=== PATIENT | female | born 1985 | race Caucasian/White ===

== ENCOUNTER 2018-05-26 08:57 | Emergency (ER) | payer OTHER ==
[2018-05-26 09:06] VITALS: BP 141/85; PULSE 93; TEMP 98.3; BMI 30.7
--- NOTE | 2018-05-26 09:17 | PDOC ---
History of Present Illness - General Chief Complaint: Pain, Acute Stated Complaint: PAIN Time Seen by Provider: 05/26/18 09:16 History Source: Patient - History of Present Illness Timing/Duration: other Associated Symptoms: denies: fever/chills, nausea/vomiting Past History - Past Medical History Allergies/Adverse Reactions: Allergies Allergy/AdvReac Type Severity Reaction Status Date / Time oxycodone HCl Allergy Verified 03/02/14 19:26 [From OxyContin] Home Medications: Ambulatory Orders Hydrocodone/Ibuprofen [VICOPROFEN 7.5/200 mg [NF MEDICATION]] 1 tab PO Q6H #20 tablet MDD 4 doses 05/26/18 COPD: No GI Disorders: Yes (PANCREATITIS) Other medical history: ovarian cyst - Surgical History Cholecystectomy: Yes Lung Surgery: No - Immunization History Immunization Up to Date: Yes - Suicide/Smoking/Psychosocial Hx Smoking History: Never smoked Have you smoked in the past 12 months: No Information on smoking cessation initiated: No Hx Alcohol Use: No Drug/Substance Use Hx: No Review of Systems - Review of Systems Constitutional: No: Chills, Fever ABD/GI: Yes: Abdominal cramping. No: Nausea, Vomiting : No: Burning, Dysuria, Flank Pain, Hematuria *Physical Exam - Vital Signs Last Vital Signs Temp Pulse Resp BP Pulse Ox 98.3 F 93 H 18 141/85 100 05/26/18 09:02 05/26/18 09:02 05/26/18 09:02 05/26/18 09:02 05/26/18 09:02 - Physical Exam General Appearance: Yes: Appropriately Dressed. No: Apparent Distress HEENT: positive: Normal Voice Neck: positive: Supple Respiratory/Chest: negative: Respiratory Distress Gastrointestinal/Abdominal: positive: Tender (R suprapubic area), Soft Musculoskeletal: negative: CVA Tenderness Integumentary: positive: Dry, Warm Neurologic: positive: Fully Oriented, Alert, Normal Mood/Affect Moderate Sedation - Procedure Monitoring Vital Signs: Procedure Monitoring Vital Signs Temperature 98.3 F 05/26/18 09:02 Pulse Rate 93 H 05/26/18 09:02 Respiratory Rate 18 05/26/18 09:02 Blood Pressure 141/85 05/26/18 09:02 O2 Sat by Pulse Oximetry (%) 100 05/26/18 09:02 Medical Decision Making - Medical Decision Making 05/26/18 09:17 32-year-old F, dx with R ovarian cyst 2 weeks ago after presenting with abdominal pain to [facility]. States she was told she had a large cyst on ultrasound. States lab and UA was negative. Has since made an appointment heard with her SHADE MATCHER to be seen on Friday. Here today because right pelvic pain has worsened. No n/v/f/cm dysuria or vag discharge See exam R/o torsion -pain control -US 05/26/18 09:42 05/26/18 11:19 US read as multiple cysts to R ovary, largest ~2 x 2cm w/ no e/o torsion. Pt given copy of report to f/u with her SHADE MATCHER as scheduled in 3 days *DC/Admit/Observation/Transfer Diagnosis at time of Disposition: Ovarian cyst Qualifiers: Laterality: right Qualified Code(s): N83.201 - Unspecified ovarian cyst, right side - Discharge Dispostion Disposition: HOME Condition at time of disposition: Good - Prescriptions Prescriptions: Hydrocodone/Ibuprofen [VICOPROFEN 7.5/200 mg [NF MEDICATION]] 1 tab PO Q6H #20 tablet MDD 4 doses - Referrals Referrals: Isaiah Key [Primary Care Provider] - - Patient Instructions Printed Discharge Instructions: DI for Ovarian Cyst Additional Instructions: Your ultrasound demonstrates multiple right ovarian cysts, largest is 2 x 2 cm. There was no evidence of torsion. Take pain medication as directed and follow- up with your SHADE MATCHER as scheduled Friday For any worsening of symptoms such as nausea, vomiting or fever - Post Discharge Activity Forms/Work/School Notes: Back to Work
[2018-05-26] MEDS ORDERED: KETOROLAC TROMETHAMINE 60 MG/2 ML VIAL IM ONE (09:20)
--- NOTE | 2018-05-26 09:54 | PDOC ---
*Physical Exam - Vital Signs Last Vital Signs Temp Pulse Resp BP Pulse Ox 98.3 F 93 H 18 141/85 100 05/26/18 09:02 05/26/18 09:02 05/26/18 09:02 05/26/18 09:02 05/26/18 09:02 ED Treatment Course - Medications Given in the ED: ED Medications Discontinued Medications Generic Name Dose Route Start Last Admin Trade Name Kamla PRN Reason Stop Dose Admin Ketorolac Tromethamine 60 mg 05/26/18 09:20 05/26/18 09:47 Toradol Injection - IM 05/26/18 09:21 Not Given ONCE ONE Medical Decision Making - Medical Decision Making 05/26/18 09:54 The patient was seen and evaluated in conjunction with PATTI Naranjo under my direct supervision, ancillary studies were reviewed. I agree with the plan as outlined by PATTI Naranjo . *DC/Admit/Observation/Transfer Diagnosis at time of Disposition: Ovarian cyst - Discharge Dispostion Disposition: HOME Condition at time of disposition: Good - Prescriptions Prescriptions: Hydrocodone/Ibuprofen [VICOPROFEN 7.5/200 mg [NF MEDICATION]] 1 tab PO Q6H #20 tablet MDD 4 doses Oxycodone HCl/Acetaminophen [Percocet 5/325 -] 1 tab PO Q6H #20 tablet MDD 4 doses - Referrals Referrals: Isaiah Key [Primary Care Provider] - - Patient Instructions Printed Discharge Instructions: DI for Ovarian Cyst Additional Instructions: Your ultrasound demonstrates multiple right ovarian cysts, largest is 2 x 2 cm. There was no evidence of torsion. Take pain medication as directed and follow- up with your PAPERHANGER ASSISTANT as scheduled Friday For any worsening of symptoms such as nausea, vomiting or fever - Post Discharge Activity Forms/Work/School Notes: Back to Work
[2018-05-26 09:55] LABS: HCG,QUALITATIVE URINE Negative
[2018-05-26 10:01] LABS: URINE APPEARANCE CLEAR; URINE BILIRUBIN NEGATIVE (<2.0 mg/dL); URINE COLOR LTYELLOW; URINE GLUCOSE (UA) NEGATIVE (NEGATIVE); URINE KETONE NEGATIVE (NEGATIVE); URINE LEUK ESTERASE 1+ (NEGATIVE); URINE NITRITE NEGATIVE (NEGATIVE); URINE PROTEIN NEGATIVE (NEGATIVE); URINE UROBILINOGEN NEGATIVE mg/dL (0.2-1.0)
[2018-05-26 10:24] LABS: EPI CELLS RARE /HPF (FEW); URINE MUCUS RARE
== END 2018-05-26 11:28 | disposition home or self-care (01) ==
LOC: JER 08:57
DX: N83.201 Unspecified ovarian cyst, right side (principal)
CPT/HCPCS: 76830-TC; 76856-TC; 81003; 81015; 84703; 99282-25

== ENCOUNTER 2018-07-24 09:34 | Emergency (ER) | payer OTHER ==
[2018-07-24 09:48] VITALS: BMI 29.9
[2018-07-24 11:51] LABS: BASO % 0.4 % (0-2.0); EOS % 0.6 % (0-4.5); HEMATOCRIT 36.8 % (32.4-45.2); HEMOGLOBIN 12.4 GM/dL (10.7-15.3); MCH 29.9 pg (25.7-33.7); MCHC 33.7 g/dl (32.0-36.0); MEAN CELL VOLUME 88.7 fl (80-96); MEAN PLT VOLUME 7.7 fl (7.5-11.1); MONO % 7.8 % (3.8-10.2); NEUT % 63.2 % (42.8-82.8); PLATELET COUNT 399 K/MM3 (134-434); RBC 4.15 M/mm3 (3.60-5.2); WHITE BLOOD COUNT 8.7 K/mm3 (4.0-10.0)
[2018-07-24 11:55] LABS: URINE APPEARANCE CLEAR; URINE BILIRUBIN NEGATIVE (<2.0 mg/dL); URINE COLOR YELLOW; URINE GLUCOSE (UA) NEGATIVE (NEGATIVE); URINE KETONE NEGATIVE (NEGATIVE); URINE LEUK ESTERASE NEGATIVE (NEGATIVE); URINE NITRITE NEGATIVE (NEGATIVE); URINE PROTEIN NEGATIVE (NEGATIVE); URINE UROBILINOGEN NEGATIVE mg/dL (0.2-1.0)
[2018-07-24 11:58] LABS: HCG,QUALITATIVE URINE Negative
--- NOTE | 2018-07-24 12:08 | PDOC ---
History of Present Illness - General Chief Complaint: Pain, Acute Stated Complaint: COLD SYMPTOMS Time Seen by Provider: 07/24/18 11:14 History Source: Patient Exam Limitations: No Limitations - History of Present Illness Travel History: No Initial Comments: 07/24/18 12:01 32-year-old female presents to ED with abdominal cramping associated with chills and night sweats for the past 5 days. Patient states history of pancreatitis with last episode 1 month ago. Patient does deny nausea or vomiting. Pt states pain does not feel like pancreatitis. Patient has no urinary and bowel complaints. Timing/Duration: reports: intermittent Quality: reports: moderate, cramping Abdominal Pain Onset Location: reports: RUQ, epigastric Pain Radiation: denies: no radiation Activities at Onset: reports: none Aggravating Factors: improves with: None Alleviating Factors: improves with: None Past History - Travel Traveled outside of the country in the last 30 days: No Close contact w/someone who was outside of country & ill: No - Past Medical History Home Medications: Ambulatory Orders Hydrocodone/Ibuprofen [VICOPROFEN 7.5/200 mg [NF MEDICATION]] 1 tab PO Q6H #20 tablet MDD 4 doses 05/26/18 Oxycodone HCl/Acetaminophen [Percocet 5/325 -] 1 tab PO Q6H #20 tablet MDD 4 doses 05/26/18 COPD: No GI Disorders: Yes (PANCREATITIS) - Surgical History Cholecystectomy: Yes Lung Surgery: No - Immunization History Immunization Up to Date: Yes - Suicide/Smoking/Psychosocial Hx Smoking History: Never smoked Have you smoked in the past 12 months: No Information on smoking cessation initiated: No Hx Alcohol Use: No Drug/Substance Use Hx: No Patient Lives Alone: No Lives with/in: parents Review of Systems - Review of Systems Able to Perform ROS?: No Is the patient limited Salvadorean proficient: No Constitutional: Yes: Chills. No: Fever, Loss of Appetite HEENTM: No: Symptoms Reported Respiratory: No: Symptoms reported Cardiac (ROS): No: Symptoms Reported ABD/GI: Yes: Abdominal cramping : No: Symptoms Reported Musculoskeletal: No: Symptoms Reported Integumentary: No: Symptoms Reported Neurological: No: Symptoms reported Endocrine: No: Symptoms Reported Hematologic/Lymphatic: No: Symptoms Reported *Physical Exam - Vital Signs Last Vital Signs Temp Pulse Resp BP Pulse Ox 99.1 F 108 H 18 136/81 100 07/24/18 09:45 07/24/18 09:45 07/24/18 09:45 07/24/18 09:45 07/24/18 09:45 - Physical Exam General Appearance: Yes: Nourished, Appropriately Dressed. No: Apparent Distress HEENT: positive: EOMI, RODRI, TMs Normal, Pharynx Normal. negative: Pale Conjunctivae Neck: positive: Supple Respiratory/Chest: positive: Lungs Clear, Normal Breath Sounds. negative: Respiratory Distress, Accessory Muscle Use Cardiovascular: positive: Regular Rhythm, Tachycardia. negative: Murmur Gastrointestinal/Abdominal: positive: Soft, Tenderness (epigastric) Musculoskeletal: negative: CVA Tenderness Extremity: positive: Normal Capillary Refill. negative: Pedal Edema Integumentary: positive: Normal Color, Warm, Moist Neurologic: positive: Motor Strength 5/5 (ambulatory) Moderate Sedation - Procedure Monitoring Vital Signs: Procedure Monitoring Vital Signs Temperature 99.1 F 07/24/18 09:45 Pulse Rate 108 H 07/24/18 09:45 Respiratory Rate 18 07/24/18 09:45 Blood Pressure 136/81 07/24/18 09:45 O2 Sat by Pulse Oximetry (%) 100 07/24/18 09:45 ED Treatment Course - LABORATORY CBC & Chemistry Diagram: 07/24/18 11:23 07/24/18 11:23 - ADDITIONAL ORDERS Additional order review: Laboratory Results 07/24/18 07/24/18 11:33 11:23 Magnesium Cancelled Total Amylase Cancelled Lipase Cancelled Urine HCG, Qual Negative 07/24/18 11:23 RBC 4.15 MCV 88.7 MCHC 33.7 RDW 14.0 MPV 7.7 Neutrophils % 63.2 Lymphocytes % 28.0 D Monocytes % 7.8 Eosinophils % 0.6 D Basophils % 0.4 Medical Decision Making - Medical Decision Making 07/24/18 11:36 CC: epigastric and ruq cramping with chills, pt denies fever, n/v/d/or urinary complaints Exam: + tenderness to epigastric and RUQ. no cv tenderness Plan: labs and urine 07/24/18 12:38 Laboratory Tests 07/24/18 07/24/18 07/24/18 11:23 11:23 11:33 WBC 8.7 Hgb 12.4 Hct 36.8 Neutrophils % 63.2 Eosinophils % 0.6 D Sodium 135 L Potassium 4.0 Chloride 106 Carbon Dioxide 27 Anion Gap 3 L BUN 15 Creatinine 1.0 Random Glucose 76 Calcium 8.8 Magnesium 2.1 Total Bilirubin 0.4 AST 14 L ALT 51 Alkaline Phosphatase 74 Total Protein 8.9 H Albumin 3.8 Total Amylase 110 Lipase 225 Urine Ketones Negative Urine Nitrite Negative Urine Bilirubin Negative Urine HCG, Qual Negative pt has appt with GI next friday. Pt will be discharged home. *DC/Admit/Observation/Transfer Diagnosis at time of Disposition: Abdominal pain - Discharge Dispostion Disposition: HOME Condition at time of disposition: Good - Referrals Referrals: Isaiah Key [Primary Care Provider] - - Patient Instructions Printed Discharge Instructions: DI for Abdominal Pain-Adult Additional Instructions: Please follow up with your GI physician. - Post Discharge Activity
[2018-07-24 12:25] LABS: ALBUMIN 3.8 g/dl (3.4-5.0); ALK PHOS 74 U/L (45-117); AMYLASE 110 U/L (25-115); ANION GAP 3 MMOL/L (8-16); BILIRUBIN,TOTAL 0.4 mg/dL (0.2-1); BLOOD UREA NITROGEN 15 mg/dL (7-18); CALCIUM 8.8 mg/dL (8.5-10.1); CHLORIDE 106 mmol/L (98-107); CO2 27 mmol/L (21-32); GLUCOSE,RANDOM 76 mg/dL (74-106); LIPASE 225 U/L (73-393); MAGNESIUM 2.1 mg/dL (1.8-2.4); SGOT/AST 14 U/L (15-37); SGPT/ALT 51 U/L (13-61); SODIUM 135 mmol/L (136-145); TOT PROT 8.9 g/dl (6.4-8.2)
[2018-07-24 13:10] VITALS: BP 128/70; PULSE 89; TEMP 98.1
== END 2018-07-24 13:00 | disposition home or self-care (01) ==
LOC: JERFT 09:34
DX: R10.13 Epigastric pain (principal)
CPT/HCPCS: 36415; 80053; 81003; 82150; 83690; 83735; 84703; 85025; 87086; 99281-25

== ENCOUNTER 2019-01-19 16:45 | Emergency (ER) | payer OTHER ==
[2019-01-19 16:55] VITALS: BMI 30.9
--- NOTE | 2019-01-19 16:56 | PDOC ---
Rapid Medical Evaluation Time Seen by Provider: 01/19/19 16:53 Medical Evaluation: 01/19/19 16:53 I have performed a brief in-person evaluation of this patient. The patient presents with a chief complaint of: Lower abdominal discomfort/pain with bleeding, she is unsure if the blood is from the urine or vagina. LMP . h/o ovarian cysts, unsure if it feels like pain from a cyst I have ordered the following: UA, UCG The patient will proceed to the ED for further evaluation.
[2019-01-19 18:35] LABS: PH,URINE 5.5 (5.0-8.0); URINE APPEARANCE CLEAR; URINE BILIRUBIN NEGATIVE (NEGATIVE); URINE COLOR YELLOW; URINE GLUCOSE (UA) NEGATIVE (NEGATIVE); URINE KETONE NEGATIVE (NEGATIVE); URINE LEUK ESTERASE NEGATIVE (NEGATIVE); URINE NITRITE NEGATIVE (NEGATIVE); URINE PROTEIN NEGATIVE (NEGATIVE); URINE UROBILINOGEN 0.2 mg/dL (0.2-1.0)
[2019-01-19 22:42] VITALS: BP 131/76; PULSE 84; TEMP 97.6
== END 2019-01-19 22:16 | disposition home or self-care (01) ==
LOC: JER 16:45
DX: N92.0 Excessive and frequent menstruation with regular cycle (principal); N92.6 Irregular menstruation, unspecified
CPT/HCPCS: 76830-TC; 81003; 84703; 87086; 99282-25

== ENCOUNTER 2019-02-08 08:41 | Emergency (ER) | payer OTHER ==
[2019-02-08 08:50] VITALS: BMI 30.9
[2019-02-08 09:49] LABS: BASO % 0.7 % (0-2.0); HEMATOCRIT 33.7 % (32.4-45.2); HEMOGLOBIN 10.9 GM/dL (10.7-15.3); LYMPH % 32.1 % (8-40); MCH 28.3 pg (25.7-33.7); MCHC 32.5 g/dl (32.0-36.0); MEAN CELL VOLUME 87.2 fl (80-96); MEAN PLT VOLUME 7.6 fl (7.5-11.1); MONO % 5.7 % (3.8-10.2); NEUT % 60.5 % (42.8-82.8); PLATELET COUNT 369 K/MM3 (134-434); RBC 3.86 M/mm3 (3.60-5.2); RDW 14.9 % (11.6-15.6); WHITE BLOOD COUNT 6.3 K/mm3 (4.0-10.0)
[2019-02-08 09:54] LABS: EPI CELLS 2.6 /HPF (0-5/HPF); HYALINE CASTS 2 /lpf (0-8); URINE APPEARANCE CLOUDY; URINE BACTERIA 9.5 /hpf (NEGATIVE); URINE BILIRUBIN NEGATIVE (NEGATIVE); URINE COLOR YELLOW; URINE GLUCOSE (UA) NEGATIVE (NEGATIVE); URINE KETONE NEGATIVE (NEGATIVE); URINE LEUK ESTERASE NEGATIVE (NEGATIVE); URINE NITRITE NEGATIVE (NEGATIVE); URINE PROTEIN NEGATIVE (NEGATIVE); URINE RBC 2 /hpf (0-4); URINE UROBILINOGEN 0.2 mg/dL (0.2-1.0); URINE WBC 1 /hpf (0-5)
[2019-02-08 10:09] LABS: MAGNESIUM 2.1 mg/dL (1.8-2.4)
[2019-02-08 10:15] LABS: ALBUMIN 3.8 g/dl (3.4-5.0); BILIRUBIN,TOTAL 0.4 mg/dL (0.2-1); BLOOD UREA NITROGEN 17.3 mg/dL (7-18); CALCIUM 9.2 mg/dL (8.5-10.1); CREATININE 0.8 mg/dL (0.55-1.3); POTASSIUM 3.9 mmol/L (3.5-5.1); TOT PROT 7.4 g/dl (6.4-8.2)
--- NOTE | 2019-02-08 10:58 | PDOC ---
History of Present Illness - General Chief Complaint: Pain Stated Complaint: ABD PAIN Time Seen by Provider: 02/08/19 09:06 History Source: Patient Exam Limitations: No Limitations - History of Present Illness Travel History: No Initial Comments: 02/08/19 09:53 33 y/o female with history of pancreatitis and cholecystectomy presents to the ED with complaints of right upper quadrant pain without nausea vomiting fever, chills change in bowel pattern, urinary complaints. Patient states history of pancreatitis and has tried multiple medications prescribed by her freight rate specialist and primary care doctor. Patient states pain for the past few months have increase in severity and since was unable to put with her gastrologist she decided come to the ER for further management. Patient states is pending stool collection and to begin Creon. Timing/Duration: reports: getting worse Quality: reports: moderate, sharpness Abdominal Pain Onset Location: reports: RUQ, epigastric Pain Radiation: reports: no radiation Activities at Onset: reports: none Aggravating Factors: improves with: None Alleviating Factors: improves with: None Past History - Travel Traveled outside of the country in the last 30 days: No Close contact w/someone who was outside of country & ill: No - Past Medical History Allergies/Adverse Reactions: Allergies Allergy/AdvReac Type Severity Reaction Status Date / Time No Known Allergies Allergy Verified 02/08/19 08:50 Home Medications: Ambulatory Orders Hydrocodone/Ibuprofen [VICOPROFEN 7.5/200 mg [NF MEDICATION]] 1 tab PO Q6H #20 tablet MDD 4 doses 05/26/18 Oxycodone HCl/Acetaminophen [Percocet 5/325 -] 1 tab PO Q6H #20 tablet MDD 4 doses 05/26/18 COPD: No GI Disorders: Yes (PANCREATITIS) - Surgical History Cholecystectomy: Yes Lung Surgery: No - Reproductive History (#): 4 Para: 2 Spontaneous : 2 - Immunization History Immunization Up to Date: Yes - Suicide/Smoking/Psychosocial Hx Smoking History: Never smoked Have you smoked in the past 12 months: No Information on smoking cessation initiated: No Hx Alcohol Use: No Drug/Substance Use Hx: No Patient Lives Alone: No Lives with/in: spouse/SO Review of Systems - Review of Systems Able to Perform ROS?: No Is the patient limited Czech proficient: No Constitutional: No: Symptoms Reported HEENTM: No: Symptoms Reported Respiratory: No: Symptoms reported Cardiac (ROS): No: Symptoms Reported ABD/GI: No: Constipated, Diarrhea, Nausea, Vomiting, Abdominal cramping : No: Symptoms Reported Musculoskeletal: No: Symptoms Reported Integumentary: No: Symptoms Reported Neurological: No: Symptoms reported Endocrine: No: Symptoms Reported Hematologic/Lymphatic: No: Symptoms Reported *Physical Exam - Vital Signs Last Vital Signs Temp Pulse Resp BP Pulse Ox 98.6 F 86 19 139/89 100 02/08/19 08:48 02/08/19 08:48 02/08/19 08:48 02/08/19 08:48 02/08/19 08:48 - Physical Exam General Appearance: Yes: Nourished, Appropriately Dressed. No: Apparent Distress HEENT: negative: Pale Conjunctivae Neck: positive: Supple Respiratory/Chest: positive: Lungs Clear, Normal Breath Sounds. negative: Respiratory Distress, Accessory Muscle Use Cardiovascular: positive: Regular Rhythm, Regular Rate. negative: Murmur Gastrointestinal/Abdominal: positive: Soft, Tenderness (moderate rt epigastric and ruq tenderness) Musculoskeletal: negative: CVA Tenderness Extremity: positive: Normal Inspection Integumentary: positive: Normal Color, Warm, Moist Neurologic: positive: Motor Strength 5/5 (ambulatory) ED Treatment Course - LABORATORY CBC & Chemistry Diagram: 02/08/19 09:31 02/08/19 09:31 - ADDITIONAL ORDERS Additional order review: Laboratory Results 02/08/19 02/08/19 02/08/19 09:31 09:31 09:31 WBC RBC Hgb Hct MCV MCH MCHC RDW Plt Count MPV Absolute Neuts (auto) Neutrophils % Lymphocytes % Monocytes % Eosinophils % Basophils % Nucleated RBC % Sodium Potassium Chloride Carbon Dioxide Anion Gap BUN Creatinine Est GFR (CKD-EPI)AfAm Est GFR (CKD-EPI)NonAf Random Glucose Calcium Magnesium 2.1 Total Bilirubin AST ALT Alkaline Phosphatase Total Protein Albumin Lipase 179 Urine Color Yellow Urine Appearance Cloudy Urine pH 5.0 Ur Specific [place] 1.026 Urine Protein Negative Urine Glucose (UA) Negative Urine Ketones Negative Urine Blood Trace Urine Nitrite Negative Urine Bilirubin Negative Urine Urobilinogen 0.2 Ur Leukocyte Esterase Negative Urine WBC (Auto) 1 Urine RBC (Auto) 2 Urine Casts (Auto) 2 U Epithel Cells (Auto) 2.6 Urine Bacteria (Auto) 9.5 Urine HCG, Qual Negative 02/08/19 02/08/19 09:31 09:31 WBC 6.3 RBC 3.86 Hgb 10.9 Hct 33.7 MCV 87.2 MCH 28.3 MCHC 32.5 RDW 14.9 Plt Count 369 MPV 7.6 Absolute Neuts (auto) 3.8 Neutrophils % 60.5 Lymphocytes % 32.1 Monocytes % 5.7 Eosinophils % 1.0 Basophils % 0.7 Nucleated RBC % 0 Sodium 140 Potassium 3.9 Chloride 106 Carbon Dioxide 26 Anion Gap 8 BUN 17.3 Creatinine 0.8 Est GFR (CKD-EPI)AfAm 113.06 Est GFR (CKD-EPI)NonAf 97.55 Random Glucose 62 L Calcium 9.2 Magnesium Total Bilirubin 0.4 AST 11 L ALT 22 Alkaline Phosphatase 51 Total Protein 7.4 Albumin 3.8 Lipase Urine Color Urine Appearance Urine pH Ur Specific [place] Urine Protein Urine Glucose (UA) Urine Ketones Urine Blood Urine Nitrite Urine Bilirubin Urine Urobilinogen Ur Leukocyte Esterase Urine WBC (Auto) Urine RBC (Auto) Urine Casts (Auto) U Epithel Cells (Auto) Urine Bacteria (Auto) Urine HCG, Qual 02/08/19 09:31 RBC 3.86 MCV 87.2 MCHC 32.5 RDW 14.9 MPV 7.6 Neutrophils % 60.5 Lymphocytes % 32.1 Monocytes % 5.7 Eosinophils % 1.0 Basophils % 0.7 Medical Decision Making - Medical Decision Making 02/08/19 10:00 Plan: Upper abdominal pain worsening over the past few months. Patient history of pancreatitis and is followed by freight rate specialist due to recurrent pain trying multiple medications and even a pain specialist. Exam: Vital signs stable. Moderate tenderness to the right epigastric and right upper quadrant area Plan: Labs including lipase, urine and will consider imaging if warranted 02/08/19 11:02 Laboratory Tests 02/08/19 02/08/19 02/08/19 09:31 09:31 09:31 WBC 6.3 Hgb 10.9 Hct 33.7 Absolute Neuts (auto) 3.8 Sodium 140 Potassium 3.9 Chloride 106 Carbon Dioxide 26 Anion Gap 8 BUN 17.3 Creatinine 0.8 Est GFR (CKD-EPI)AfAm 113.06 Est GFR (CKD-EPI)NonAf 97.55 Random Glucose 62 L Calcium 9.2 Magnesium Total Bilirubin 0.4 AST 11 L ALT 22 Alkaline Phosphatase 51 Albumin 3.8 Lipase Urine Blood Urine Nitrite Urine Bilirubin Ur Leukocyte Esterase Urine HCG, Qual Negative 02/08/19 02/08/19 09:31 09:31 WBC Hgb Hct Absolute Neuts (auto) Sodium Potassium Chloride Carbon Dioxide Anion Gap BUN Creatinine Est GFR (CKD-EPI)AfAm Est GFR (CKD-EPI)NonAf Random Glucose Calcium Magnesium 2.1 Total Bilirubin AST ALT Alkaline Phosphatase Albumin Lipase 179 Urine Blood Trace Urine Nitrite Negative Urine Bilirubin Negative Ur Leukocyte Esterase Negative Urine HCG, Qual Patient will see her freight rate specialist later this week and will be given a few tablets of Percocet to use as needed for severe pain at night *DC/Admit/Observation/Transfer Diagnosis at time of Disposition: RUQ pain - Discharge Dispostion Disposition: HOME Condition at time of disposition: Good - Referrals - Patient Instructions Printed Discharge Instructions: DI for Abdominal Pain-Adult Additional Instructions: Please follow-up with your freight rate specialist and primary care physician as needed May take Percocet as needed for severe pain at night - Post Discharge Activity
[2019-02-08 11:35] VITALS: BP 121/82; PULSE 77; TEMP 98.5
== END 2019-02-08 11:45 | disposition home or self-care (01) ==
LOC: JER 08:41
DX: R10.11 Right upper quadrant pain (principal); K86.1 Other chronic pancreatitis
CPT/HCPCS: 36415; 80053; 81003; 83690; 83735; 84703; 85025; 99282-25

== ENCOUNTER 2019-05-28 09:19 | Emergency (ER) | payer OTHER ==
[2019-05-28 09:28] VITALS: BMI 30.7
--- NOTE | 2019-05-28 09:56 | PDOC ---
"History of Present Illness - General Chief Complaint: Pain, Acute Stated Complaint: RT SIDE ABD PAIN Time Seen by Provider: 05/28/19 09:52 History Source: Patient Exam Limitations: No Limitations - History of Present Illness Initial Comments: 05/28/19 12:21 CHIEF COMPLAINT: Abdominal pain HISTORY OF PRESENT ILLNESS: This is a 33-year-old female with a history of cholecystitis and pancreatitis s/p cholecystectomy, with known residual common bile duct stones. Patient presents today complaining of 2 days of right upper quadrant abdominal pain and associated nausea. She denies fever/chills, diarrhea, or any other symptoms. Patient reports that she usually has good relief of pain with oral pain medication. She follows with a GI at [facility], and was recommended to have an MRI which is not yet scheduled. Vital signs on arrival are unremarkable. REVIEW OF SYSTEMS: GENERAL/CONSTITUTIONAL: No fever or chills. No weakness. No weight change. HEAD, EYES, EARS, NOSE AND THROAT: No change in vision. No ear pain or discharge. No sore throat. CARDIOVASCULAR: No chest pain or palpitations. RESPIRATORY: No cough, wheezing, or shortness of breath. GASTROINTESTINAL: See HPI. GENITOURINARY: No dysuria, frequency, or change in urination. MUSCULOSKELETAL: No joint or muscle swelling or pain. No neck or back pain. SKIN: No rash or easy bruising. NEUROLOGIC: No headache, vertigo, loss of consciousness, or loss of sensation. PSYCHIATRIC: No depression or anxiety. ENDOCRINE: No increased thirst. No abnormal weight change. HEMATOLOGIC/LYMPHATIC: No anemia, easy bleeding, or history of blood clots. ALLERGIC/IMMUNOLOGIC: No hives or skin allergy. No latex allergy. PHYSICAL EXAM: GENERAL: The patient is awake, alert, and fully oriented, in no acute distress. HEAD: Normal with no signs of trauma. ENT: Pupils equal, round and reactive to light, extraocular movements intact, sclera anicteric, conjunctiva clear. Neck supple. LUNGS: Clear to auscultation bilaterally. Normal excursion. No respiratory distress or use of accessory muscles. CV: RRR, S1/S2, no MRG. Cap refill < 2 sec. ABDOMEN: Soft, non-distended, right upper quadrant tenderness to deep palpation without guarding or rebound tenderness. EXTREMITIES: Normal range of motion, no edema. NEUROLOGICAL: Normal speech, normal gait. CN II-XII grossly intact. PSYCH: Normal mood, normal affect. SKIN: Warm, dry, normal turgor, no rashes or lesions noted. Past History - Past Medical History Allergies/Adverse Reactions: Allergies Allergy/AdvReac Type Severity Reaction Status Date / Time No Known Allergies Allergy Verified 02/08/19 08:50 Home Medications: Ambulatory Orders Oxycodone HCl/Acetaminophen [Percocet 5-325 mg Tablet] 1 tab PO Q6H PRN #10 tablet MDD 4 05/28/19 Zolpidem Tartrate [Ambien] 5 mg PO HS 05/28/19 COPD: No GI Disorders: Yes (PANCREATITIS) - Surgical History Cholecystectomy: Yes Lung Surgery: No - Reproductive History (#): 4 Para: 2 Spontaneous : 2 - Immunization History Immunization Up to Date: Yes - Psycho Social/Smoking Cessation Hx Smoking History: Never smoked Have you smoked in the past 12 months: No Information on smoking cessation initiated: No Hx Alcohol Use: No Drug/Substance Use Hx: No *Physical Exam - Vital Signs Last Vital Signs Temp Pulse Resp BP Pulse Ox 97.1 F L 77 18 125/84 98 05/28/19 09:24 05/28/19 09:24 05/28/19 09:24 05/28/19 09:24 05/28/19 09:24 ED Treatment Course - LABORATORY CBC & Chemistry Diagram: 05/28/19 09:55 05/28/19 09:55 Medical Decision Making - Medical Decision Making 05/28/19 12:13 A/P: 33-year-old female with common bile duct stones presenting with exacerbation of pain. Labs reviewed. LFTs and lipase are normal. No elevated white count or fever to suggest cholangitis. Pain improved with 1 dose of Percocet. Discussed with patient and she prefers to follow-up with her GI at [facility]. Discussed importance of follow-up and likely MRI for better characterization of pain and she agrees. Will prescribe short course of Percocet pending her GI appointment, which she plans to make today. Search Terms: Sheree Truong, 1985Search Date: 05/28/2019 12:19:18 PM The Drug Utilization Report below displays all of the controlled substance prescriptions, if any, that your patient has filled in the last twelve months. The information displayed on this report is compiled from pharmacy submissions to the Department, and accurately reflects the information as submitted by the pharmacies. This report was requested by: Li Yein Navya | Reference #: [id number] There are no results for the search terms that you entered. Discharge - Discharge Information Problems reviewed: Yes Clinical Impression/Diagnosis: Abdominal pain Condition: Stable Disposition: HOME - Admission No - Additional Discharge Information Prescriptions: Oxycodone HCl/Acetaminophen [Percocet 5-325 mg Tablet] 1 tab PO Q6H PRN #10 tablet MDD 4 PRN Reason: Pain Prescription Drug Monitoring Program (I-STOP) results: I-STOP reviewed and no issues identified - Follow up/Referral Referrals: Isaiah Key [Primary Care Provider] - 3 days - Patient Discharge Instructions Patient Printed Discharge Instructions: DI for Abdominal Pain-Adult Additional Instructions: You were seen today for abdominal pain. Your lab work and urine studies are normal. As discussed, we recommend that you follow-up with your box blank machine operator helper at [place] for further evaluation, likely including an MRI. You are being given a short-term prescription for pain medication. Please return here for severe pain, vomiting/inability to keep down fluids, fever, or any other concerning symptoms. - Post Discharge Activity Work/Back to School Note: Back to Work"
[2019-05-28 11:27] LABS: BASO % 0.7 % (0-2.0); EOS % 1.2 % (0-4.5); HEMATOCRIT 35.8 % (32.4-45.2); HEMOGLOBIN 11.7 GM/dL (10.7-15.3); LYMPH % 37.5 % (8-40); MCH 28.8 pg (25.7-33.7); MCHC 32.7 g/dl (32.0-36.0); MEAN CELL VOLUME 88.2 fl (80-96); MEAN PLT VOLUME 8.3 fl (7.5-11.1); MONO % 7.2 % (3.8-10.2); NEUT % 53.4 % (42.8-82.8); PLATELET COUNT 400 K/MM3 (134-434); RBC 4.06 M/mm3 (3.60-5.2); RDW 14.1 % (11.6-15.6); WHITE BLOOD COUNT 5.7 K/mm3 (4.0-10.0)
[2019-05-28 11:31] LABS: PH,URINE 5.5 (5.0-8.0); URINE APPEARANCE CLEAR; URINE BILIRUBIN NEGATIVE (NEGATIVE); URINE COLOR YELLOW; URINE GLUCOSE (UA) NEGATIVE (NEGATIVE); URINE KETONE NEGATIVE (NEGATIVE); URINE LEUK ESTERASE NEGATIVE (NEGATIVE); URINE NITRITE NEGATIVE (NEGATIVE); URINE PROTEIN NEGATIVE (NEGATIVE); URINE UROBILINOGEN 0.2 mg/dL (0.2-1.0)
[2019-05-28 11:59] LABS: ALBUMIN 3.9 g/dl (3.4-5.0); BILIRUBIN,TOTAL 0.4 mg/dL (0.2-1); BLOOD UREA NITROGEN 11.2 mg/dL (7-18); CREATININE 0.8 mg/dL (0.55-1.3); POTASSIUM 4.3 mmol/L (3.5-5.1); TOT PROT 7.6 g/dl (6.4-8.2)
[2019-05-28 12:38] VITALS: BP 129/79; PULSE 80; TEMP 98.2
== END 2019-05-28 12:38 | disposition home or self-care (01) ==
LOC: JER 09:19
DX: R10.11 Right upper quadrant pain (principal)
CPT/HCPCS: 36415; 80053; 81003; 83690; 84703; 85025; 99284-25